=== PATIENT | female | born 1960 | race African-American/Black ===

== ENCOUNTER 2018-04-26 13:46 | Emergency (ER) | payer OTHER ==
[~2018-04-26] VITALS: Ht 162.6 cm; Wt 50.0 kg
[2018-04-26] MEDS ORDERED: AMLO2.5T2 PO (13:56)
[2018-04-26] MEDS ORDERED: ATEN25TA PO (13:57)
[2018-04-26] MEDS ORDERED: CYCLOBENZAPRINE HCL 10 MG TABLET PO ONE (16:15)
[2018-04-26 17:14] VITALS: BP 167/82
== END 2018-04-26 17:38 | disposition home or self-care (01) ==
LOC: EMS 13:47
DX: S46.912A Strain of unspecified muscle, fascia and tendon at shoulder and upper arm level, left arm, initial encounter (principal); I10 Essential (primary) hypertension; X58.XXXA Exposure to other specified factors, initial encounter; Y93.89 Activity, other specified; Y92.89 Other specified places as the place of occurrence of the external cause; Y99.8 Other external cause status
CPT/HCPCS: 93005; 99285